=== PATIENT | female | born 1960 | race Caucasian/White ===

== ENCOUNTER 2018-12-20 14:51 | Emergency (ER) | payer BC, OTHER ==
--- NOTE | 2018-12-20 15:58 | RAD ---
LEFT FOOT 3 VIEWS: HISTORY: Injury, left foot pain. Patient dropped an encyclopedia on top of foot. FINDINGS/IMPRESSION: No acute fracture or dislocation is identified. POS: C
== END 2018-12-20 16:17 | disposition home or self-care (01) ==
LOC: MADERS 14:51
DX: S90.32XA Contusion of left foot, initial encounter (principal); E78.5 Hyperlipidemia, unspecified; I10 Essential (primary) hypertension; Z79.899 Other long term (current) drug therapy; W20.8XXA Other cause of strike by thrown, projected or falling object, initial encounter